=== PATIENT | male | born 1960 | race Caucasian/White ===

== ENCOUNTER 2016-08-12 | Outpatient (CLI) | END 2016-08-12 13:27 | disposition critical access hospital (66) | CPT/HCPCS: A0425; A0427 ==

== ENCOUNTER 2016-08-12 13:48 | Emergency (ER) | payer BC ==
[2016-08-12] MEDS ORDERED: SODIUM CHLORIDE 0.9% 1,000 ML IV ONE (14:46)
== END 2016-08-12 17:12 | disposition home or self-care (01) ==
DX: E86.0 Dehydration (principal); R55 Syncope and collapse; R33.9 Retention of urine, unspecified; R35.0 Frequency of micturition

== ENCOUNTER 2018-06-09 10:40 | Outpatient (CLI) | payer BC ==
--- NOTE | 2018-06-09 13:14 | XRAY Report ---
Reason: BILAT INFEROMEDIAL KNEE PAIN Procedure Date: 06/09/2018 Accession Number: [id number] / [id number] Procedure: XRN - Knee 3 View BILAT CPT Code: FULL RESULT: EXAMS: 1. RIGHT KNEE RADIOGRAPHY 2. LEFT KNEE RADIOGRAPHY EXAM DATE:06/09/2018 11:09 AM. CLINICAL HISTORY:Bilateral inferomedial knee pain. COMPARISON: None. TECHNIQUE: 3 views each. FINDINGS: Right Knee: Bones: Normal. No fractures or bone lesions. Joints: Minimal joint space narrowing of the weightbearing compartments. No effusion. No subluxations. Soft Tissues: Normal. No soft tissue swelling. Left Knee: Bones: Normal. No fractures or bone lesions. Joints: Minimal joint space narrowing of the weightbearing compartments. No effusion. No subluxations. Soft Tissues: Normal. No soft tissue swelling. IMPRESSION: Minimal degenerative changes. [facility]
== END 2018-06-09 10:41 | disposition home or self-care (01) ==
LOC: DI.N 10:40
PROVIDERS: ATTEND Internal Medicine
DX: M17.0 Bilateral primary osteoarthritis of knee (principal)